=== PATIENT | female | born 1950 | race Caucasian/White ===

== ENCOUNTER 2021-08-03 09:20 | Outpatient (CLI) | payer MEDICARE, OTHER ==
[2021-08-03 16:54] LABS: BILIRUBIN,URINE NEGATIVE (NEGATIVE); GLUCOSE, URINE (UA) NEGATIVE (NEGATIVE); KETONES,URINE (UA) NEGATIVE (NEGATIVE); LEUKOCYTE ESTERASE, URINE NEGATIVE (NEGATIVE); NITRITE,URINE NEGATIVE (NEGATIVE); OCCULT BLOOD,URINE NEGATIVE (NEGATIVE); PH,URINE 6.5 PH (5.0-7.5); PROTEIN,URINE NEGATIVE (NEGATIVE); UROBILINOGEN,URINE 0.2 (NORMAL) E.U./dL (NORMAL)
[2021-08-03 16:55] LABS: CLARITY,URINE CLEAR (CLEAR)
[2021-08-03 17:37] LABS: BACTERIA,URINE Rare /HPF (None Seen); RBC,URINE None Seen /HPF (0-5); SQUAMOUS EPITHELIAL CELL,UR NONE SEEN (<= Few); WBC,URINE 0-3 /HPF (0-5)
== END 2021-08-03 23:59 | disposition home or self-care (01) ==
LOC: LAB.S 09:20
PROVIDERS: ATTEND Physician Assistant Medical
DX: R30.0 Dysuria (principal)
CPT/HCPCS: 81001; 87086

== ENCOUNTER 2023-11-13 08:31 | Outpatient (CLI) | payer MEDICARE, OTHER ==
[2023-11-13 09:22] LABS: THYROID STIMULATING HORMONE 3.63 uIU/mL (0.34-5.60)
[2023-11-14 08:16] LABS: DHEA-SULFATE 40.3 ug/dL (20.4-186.6); ESTRADIOL <5.0 pg/mL (0.0-54.7); PROGESTERONE 0.3 ng/mL (.)
== END 2023-11-13 08:32 | disposition home or self-care (01) ==
LOC: LAB 08:31
PROVIDERS: ATTEND Naturopath
DX: M85.89 Other specified disorders of bone density and structure, multiple sites (principal)
CPT/HCPCS: 36415; 82627; 82670; 84144; 84305; 84403; 84443; 84481